=== PATIENT | male | born 1975 | race Caucasian/White ===

== ENCOUNTER 2020-03-03 03:35 | Inpatient (IN) ==
[2020-03-03] MEDS ORDERED: ONDANSETRON INJ 2 MG/ML 2 ML VIAL IV STA (04:01)
[2020-03-03] MEDS ORDERED: MoRPHine SULFATE 10 MG/ML CARP/VIAL IV STA (04:01)
[2020-03-03] MEDS ORDERED: SODIUM CHLORIDE 0.9% 1000ML 1,000 ML IV ONE (04:01)
[2020-03-03] MEDS ORDERED: KETOROLAC TROMETHAMINE 15 MG/ML VIAL IV STA (04:01)
[2020-03-03 04:10] LABS: Basophils # (auto) 0.02 K/uL (0-0.2); Basophils % (auto) 0.3 %; Eosinophils # (auto) 0.32 K/uL (0-0.5); Eosinophils % (auto) 4.9 %; Hematocrit (blood only) 45.8 % (42-52); Hemoglobin 16.2 g/dL (14.0-18.0); Immature Granulocytes # (auto) 0.01 K/uL (0.00-0.02); Immature Granulocytes % (auto) 0.2 %; Lymphocytes # (auto) 2.34 K/uL (1.2-3.4); Lymphocytes % (auto) 35.8 %; Mean Corpuscular Hgb Conc 35.4 g/dL (32-36); Mean Corpuscular Volume 87.7 fL (80-100); Mean Platelet Volume 8.6 fL (7.4-10.4); Monocytes # (auto) 0.58 K/uL (0.11-0.59); Monocytes % (auto) 8.9 %; Neutrophils # (auto) 3.27 K/uL (1.4-6.5); Neutrophils % (auto) 49.9 %; Platelet Count 231 K/uL (130-400); RDW Coefficient of Variation 11.9 % (11.5-14.5); RDW Standard Deviation 37.9 fL (36.4-46.3); Red Blood Count 5.22 M/uL (4.7-6.1); White Blood Count 6.54 K/uL (4.8-10.8)
[2020-03-03 04:28] LABS: Appearance Urine Clear (Clear); Bacteria Urine Automated Negative (Negative); Bilirubin Urine Negative (Negative); Blood Urine 3+ (Negative); Color Urine Yellow; Epithelial Cell Urine Auto 0-5 /lpf (0-5); Glucose Urine UA Negative (Negative); Ketones Urine Trace (Negative); Leukocyte Esterase Urine Negative (Negative); Nitrite Urine Negative (Negative); Protein Urine Trace (Negative); RBC Urine Automated >30 /hpf (0-4); Specific Gravity Urine 1.029 (1.000-1.030); Urobilinogen Urine Negative (Negative); pH Urine 5.5 (4.5-7.5)
[2020-03-03] MEDS ORDERED: HYDROmorphone INJ 1 MG/ML SYRINGE IV STA (04:43)
[2020-03-03 04:51] LABS: Albumin Globulin Ratio 0.9 (0.9-2); Albumin Level 3.6 gm/dl (3.4-5.0); Bilirubin,Total 0.4 mg/dl (0.2-1); Calcium 8.3 mg/dl (8.5-10.1); Creatinine Clr Calc Pharmacy 86.9 ml/min; Est GFR (African American) 74.3; Est GFR (Non-African American) 64.1; Globulin 3.9 gm/dl (2.5-4.0); Potassium 3.9 mmol/L (3.5-5.1); Total Protein 7.5 gm/dl (6.4-8.2)
--- NOTE | 2020-03-03 04:57 | Emergency Department Note ---
History of Present Illness General Chief complaint: Abdominal Pain Stated complaint: ABD PAIN Time Seen by Provider: 03/03/20 03:48 Source: patient Mode of arrival: ambulatory Limitations: no limitations History of Present Illness Maximum Pain Intensity: 8 This patient is a 44-year-old male who presents to the emergency department for evaluation of left lower quadrant abdominal pain. Pain started suddenly about 4 5 minutes prior to arrival. The patient states that his pain woke him up from sleep. He states that the pain is severe and rates his discomfort a 9/10. Nothing makes the pain better or worse. He has associated nausea but has not vomited. Pain has been constant but fluctuates in severity. He denies any changes in bowel movements or urinary symptoms. He denies any history of similar symptoms. Home Medications Home Medications Medication Instructions Recorded Confirmed Type levothyroxine 137 mcg PO DAILY 03/03/20 03/03/20 History Allergies Allergy/AdvReac Type Severity Reaction Status Date / Time No Known Allergies Allergy Unverified 03/03/20 03:54 Past Med/Surg History Medical History (Updated 03/03/20 @ 05:20 by Kristin Ibrahim PA-C) Blade's disease Reactive arthritis Surgical History No significant past surgical history Social History Smoking Status: Never smoker Feels Safe at Home: Yes Review of Systems A total of 10 systems reviewed and were otherwise negative Physical Exam Vital Signs Vital Signs - 24 hr 03/03/20 03:44 03/03/20 04:29 Temperature 36.6 C Temperature Source Oral Pulse Rate 59 L Pulse Rate [Right Finger] 62 Respiratory Rate 20 18 Respiratory Effort / Characteristics Non-Labored Spontaneous Respiratory Depth Normal Blood Pressure 146/86 H Blood Pressure [Right Arm] 159/95 H Blood Pressure Mean 106 Blood Pressure Mean [Right Arm] 116 Blood Pressure Position Sitting Pulse Oximetry 96 95 Oxygen Delivery Method Room Air Room Air Sepsis Recent Fever Within 48 Hours No Sepsis New/Unexplained Change in Mental Status N/A Sepsis Action Taken by Nursing No Action Required VITALS: Vitals are noted on the nurse's note and reviewed by myself. Vital signs stable. GENERAL: This is a 44-year-old male, uncomfortable appearing, lying supine in bed, well-developed well-nourished. SKIN: The skin was without rashes. EYES: Pupils equal round and reactive to light and accommodation. MOUTH: Mucous membranes moist. Tonsils are not enlarged. Pharynx without erythema or exudate. NECK: Supple without nuchal rigidity. No lymphadenopathy. HEART: Regular rate and rhythm without murmurs gallops or rubs. LUNGS: Clear to auscultation bilaterally without wheezes, rales or rhonchi. ABDOMEN: Positive bowel sounds x 4. Soft, no significant tenderness to palpation. No guarding or rebound tenderness. No CVA tenderness. NEURO: Patient was alert and oriented to person place and time. Course Administered Medications Discontinued Medications Hydromorphone HCl (Hydromorphone Inj 1 Mg/Ml Syringe) 1 mg IV NOW STA Stop: 03/03/20 04:44 Last Admin: 03/03/20 04:45 Dose: 1 mg Documented by: [id number] Sodium Chloride (Nss 1000ml) 1,000 mls @ 999 mls/hr IV .Q1H1M ONE Stop: 03/03/20 05:01 Last Infusion: 03/03/20 05:10 Dose: 0 mls/hr Documented by: [id number] Admin: 03/03/20 04:12 Dose: 999 mls/hr Documented by: [id number] Ketorolac Tromethamine (Ketorolac Tromethamine 15 Mg/Ml Vial) 15 mg IV NOW STA Stop: 03/03/20 04:02 Last Admin: 03/03/20 04:12 Dose: 15 mg Documented by: [id number] Morphine Sulfate (Morphine Sulfate 10 Mg/Ml Carp/Vial) 6 mg IV NOW STA Stop: 03/03/20 04:02 Last Admin: 03/03/20 04:11 Dose: 6 mg Documented by: [id number] Ondansetron HCl (Ondansetron Inj 2 Mg/Ml 2 Ml Vial) 4 mg IV NOW STA Stop: 03/03/20 04:02 Last Admin: 03/03/20 04:12 Dose: 4 mg Documented by: [id number] Medical Decision Making Differential Diagnosis Differential diagnosis includes renal calculus, pyelonephritis, musculoskeletal pain, ruptured AAA, aortic dissection, diverticulitis, perforated viscus, bowel obstruction, biliary pathology, pancreatitis, PE, pneumonia, pneumothorax, trauma, herpes zoster, malignancy, among others. Home Medications Current Medication List: was personally reviewed by me Laboratory Data Attestation: I reviewed the patient's lab results. Result diagrams: 03/03/20 03:55 03/03/20 03:55 Lab Results 03/03/20 03/03/20 03/03/20 Range/Units 03:55 03:55 04:15 WBC 6.54 (4.8-10.8) K/uL RBC 5.22 (4.7-6.1) M/uL Hgb 16.2 (14.0-18.0) g/dL Hct 45.8 (42-52) % MCV 87.7 (80-100) fL MCH 31.0 (25-34) pg MCHC 35.4 (32-36) g/dL RDW Std Deviation 37.9 (36.4-46.3) fL RDW Coeff of Samantha 11.9 (11.5-14.5) % Plt Count 231 (130-400) K/uL MPV 8.6 (7.4-10.4) fL Immature Gran % (Auto) 0.2 % Neut % (Auto) 49.9 % Lymph % (Auto) 35.8 % [place] % (Auto) 8.9 % Eos % (Auto) 4.9 % Baso % (Auto) 0.3 % Neut # (Auto) 3.27 (1.4-6.5) K/uL Lymph # (Auto) 2.34 (1.2-3.4) K/uL [place] # (Auto) 0.58 (0.11-0.59) K/uL Eos # (Auto) 0.32 (0-0.5) K/uL Baso # (Auto) 0.02 (0-0.2) K/uL Immature Gran # (Auto) 0.01 (0.00-0.02) K/uL Sodium 142 (136-145) mmol/L Potassium 3.9 (3.5-5.1) mmol/L Chloride 108 H (98-107) mmol/L Carbon Dioxide 29 (21-32) mmol/L Anion Gap 5.0 (3-11) BUN 15 (7-18) mg/dl Creatinine 1.33 (0.6-1.4) mg/dl Est Cr Clr Drug Dosing 86.9 ml/min Est GFR ( Amer) 74.3 Est GFR (Non-Af Amer) 64.1 BUN/Creatinine Ratio 11.0 (10-20) Glucose 154 H (70-99) mg/dl Calcium 8.3 L (8.5-10.1) mg/dl Total Bilirubin 0.4 (0.2-1) mg/dl AST 18 (15-37) U/L ALT 34 (12-78) U/L Alkaline Phosphatase 57 (45-117) U/L Total Protein 7.5 (6.4-8.2) gm/dl Albumin 3.6 (3.4-5.0) gm/dl Globulin 3.9 (2.5-4.0) gm/dl Albumin/Globulin Ratio 0.9 (0.9-2) Urine Color Yellow Urine Appearance Clear (Clear) Urine pH 5.5 (4.5-7.5) Ur Specific [place] 1.029 (1.000-1.030) Urine Protein Trace H (Negative) Urine Glucose (UA) Negative (Negative) Urine Ketones Trace H (Negative) Urine Blood 3+ H (Negative) Urine Nitrite Negative (Negative) Urine Bilirubin Negative (Negative) Urine Urobilinogen Negative (Negative) Ur Leukocyte Esterase Negative (Negative) Urine WBC (Auto) 1-5 (0-5) /hpf Urine RBC (Auto) >30 H (0-4) /hpf U Hyaline Cast (Auto) 1-5 (0-5) /lpf U Epithel Cells (Auto) 0-5 (0-5) /lpf Urine Bacteria (Auto) Negative (Negative) Imaging Data Attestation: I personally reviewed and interpreted this imaging study as follow s: Radiologist's Impression: CT ABDOMEN & PELVIS Without Contrast: 4.9 mm proximal left ureteral stone at the UPJ with mild left hydronephrosis. Incidental nonobstructive nephrolithiasis involving the superior pole the right kidney. No right ureteral stones. No bladder calcifications. The unenhanced solid abdominal organs are otherwise unremarkable. No acute bowel abnormality or obstruction. No free intraperitoneal fluid or pneumoperitoneum. Radiologist: Lobito Mcdaniel MD Blood Pressure Blood Pressure Findings: Elevated blood pressure Blood Pressure Disposition: further management by hospitalist ANNA Sousa The patient is a 44-year-old male who presents today complaining of left lower quadrant abdominal pain which started suddenly 45 minutes prior to arrival. Labs revealed no leukocytosis, anemia or concerning electrolyte abnormality. Creatinine within normal limits. Urinalysis was not suggestive of infection. CT of the abdomen/pelvis shows a large proximal left ureteral stone. Patient given multiple doses of pain medication and had continued pain despite this. Given patient's intractable pain and large stone with hydronephrosis, I do feel he would benefit from inpatient care. The case was discussed with the [facility] service, who agreed to evaluate patient. Impression & Plan Calculus of proximal left ureter, Hydronephrosis Discharge Plan Visit Data Chief Complaint: Abdominal Pain Stated Complaint: ABD PAIN ED Provider: Tomasz Lucero ED Midlevel Provider: Kristin Ibrahim Discharge Problem: Calculus of proximal left ureter, Hydronephrosis Forms Stand Alone Forms: [employer] Prescriptions Prescriptions: No Action levothyroxine 137 mcg tablet 137 mcg PO DAILY RF: 0 Discharge Problem: Hydronephrosis Qualifiers: Hydronephrosis type: with ureteral calculous obstruction Qualified Code(s): N13.2 - Hydronephrosis with renal and ureteral calculous obstruction
--- NOTE | 2020-03-03 06:54 | History and Physical Report ---
DATE OF ADMISSION: 03/03/2020 CHIEF COMPLAINT: Left-sided abdominal pain. HISTORY OF PRESENT ILLNESS: This is a 44-year-old male with past medical history significant for hypothyroidism, hyperlipidemia, polyarthropathy, who presents with left-sided abdominal pain and found to have left kidney stone. The patient has no history of kidney stones in the past. Presented with severe left sided abdominal pain, 9/10 in severity. No burning micturition, no hematuria. No fever, no chills. Required significant pain medication in the ER. Currently pain is under control. Denies any headache, no blurred vision, no earache, no runny nose, no sore throat, no cough, no chest pain, no shortness of breath, no nausea. Normal bowel movements. Currently, resting comfortably and hemodynamically stable. ALLERGIES: No known drug allergies. PAST MEDICAL HISTORY: As mentioned above. PAST SURGICAL HISTORY: Carpal tunnel surgery right wrist, tonsillectomy, adenoidectomy, right tympanostomy tubes. MEDICATIONS: Levothyroxine 137 mcg p.o. daily. FAMILY HISTORY: Significant for mother had throat cancer, heart disorder, hypertension; father had heart disorder, of [place] at age of 55 years; sister has hypertension; maternal grandfather in his 50s from heart disorder; maternal grandmother had heart disorder, in her 50s; mother in her 50s from heart complications. SOCIAL HISTORY: . No smoking, no alcohol, no drug use. REVIEW OF SYSTEMS: As per HPI. Rest of the review of systems negative. PHYSICAL EXAMINATION: GENERAL: The patient is of moderate build, not in acute distress. VITAL SIGNS: Temperature 36.6, pulse 62, respiratory rate 18, blood pressure 159/95, oxygen 95% on room air. HEENT: No pallor, no icterus. Atraumatic. Pupils equal, round, reactive to light. NECK: No neck masses seen, supple. CARDIOVASCULAR: S1, S2 heard, regular rate and rhythm, no murmur, no gallop. RESPIRATORY SYSTEM: Normal AP diameter. No accessory muscle use. No wheezing, no crackles. ABDOMEN: Soft, bowel sounds present, nontender. No distention, no CVA tenderness. CENTRAL NERVOUS SYSTEM: Cranial nerves II-XII grossly intact. Nonfocal. EXTREMITIES: No edema, no erythema. LABORATORY DATA: WBC 6.5, hemoglobin 16.2, hematocrit 45.8, platelets 231. Sodium 142, potassium 3.9, chloride 108, bicarbonate 29, BUN 15, creatinine 1.3, serum glucose 154, calcium 8.3, total bilirubin 0.4, AST 18, ALT 34, alkaline phosphatase 57. Urinalysis, +3 blood. IMAGING DATA: CT abdomen and pelvis preliminary report shows about 5 mm proximal left ureteral stone at the UPJ junction with mild left hydronephrosis. ASSESSMENT AND PLAN: This is a 44-year-old male who presents with left renal colic. 1. Left renal colic, about 5 mm left ureteropelvic junction kidney stone on the CAT scan preliminary report. The patient is not septic. UA is negative for infection. Required significant pain meds in ER. Will keep him on V fluids, IV normal saline at 125 mL per hour, IV Dilaudid p.r.n., IV Toradol p.r.n. N.p.o. except meds until seen by urology. Consult urology in the a.m. for further recommendations. 2. Hypothyroidism. Continue Synthroid. 3. Deep venous thrombosis prophylaxis, sequential compression devices. DISPOSITION: Admit to medical floor. Expect to discharge home and follow with family doctor. GEOVANI
[2020-03-03] MEDS ORDERED: POLYETHYLENE (MIRALAX) 17 GM PACK PO PRN (08:15)
[2020-03-03] MEDS ORDERED: KETOROLAC TROMETHAMINE 15 MG/ML VIAL IV PRN (08:15)
[2020-03-03] MEDS ORDERED: SODIUM CHLORIDE 0.9% 1000ML 1,000 ML IV SCH ×2 (08:15→16:45)
[2020-03-03] MEDS ORDERED: ACETAMINOPHEN 325 MG TAB PO PRN (08:15)
[2020-03-03] MEDS ORDERED: HYDROmorphone INJ 0.5 MG/0.5 ML SYR IV PRN ×2 (08:15→09:51)
[2020-03-03] MEDS ORDERED: ONDANSETRON INJ 2 MG/ML 2 ML VIAL IV PRN ×2 (08:15→11:57)
--- NOTE | 2020-03-03 08:18 | CT Scan Report ---
CT OF THE ABDOMEN AND PELVIS WITHOUT CONTRAST CLINICAL HISTORY: Left lower quadrant abdominal pain. COMPARISON STUDY: No previous studies for comparison. TECHNIQUE: Axial images of the abdomen and pelvis were obtained without IV contrast. Images were revi ewed in the axial, sagittal, and coronal planes. Automated exposure control was utilized for the jane dy. A dose lowering technique was utilized adhering to the principles of ALARA. FINDINGS: A 6 mm left ureteropelvic junction calculus results in mild hydronephrosis. There is a 6 mm calculus within the upper pole of the right kidney. There is mild left perinephric infiltration. Katherin luation of the remainder of the abdomen and pelvis is suboptimal on this unenhanced examination. The liver, spleen, adrenal glands and pancreas are unremarkable. There is no evidence for a bowel obstruc tion. The appendix is normal. No ascites is present. There is no lymphadenopathy. No suspicious osseo us lesions are noted. IMPRESSION: 1. 6 mm left ureteropelvic junction calculus which results in mild hydronephrosis. 2. 6 mm calculus within the upper pole of the right kidney. ACT 112: Negative or not required by law. Electronically signed by: Bart Neal M.D. 03/03/2020 8:16 AM
--- NOTE | 2020-03-03 09:48 | Hospitalist Progress Note ---
Date of Service March 03, 2020 Assessment & Plan (1) Calculus of proximal left ureter: (2) Hydronephrosis: -admission CT abdomen/Pelvis: A 6 mm left ureteropelvic junction calculus results in mild hydronephrosis. There is a 6 mm calculus within the upper pole of the right kidney. There is mild left perinephric infiltration. -no fevers -patient started on IV fluids -will start patient on Flomax in addition -prn pain medications with bowel regimen -Urology consult requested. currently patient is NPO if there is any potential direct urology procedure for kidney stone. if procedure not indicated today then patient may be given diet but nurse reports the urology service has plans for jocelyn kenny to go to [place] today, hospitalist will order preoperative ceftriaxone 1 gram Rheumatoid Arthritis -patient reports history of rheumatoid arthritis for which he takes ibupofren daily. patient on prn acetaminophen and prn narcotics currently for the kidney stone (3) Hypothyroidism: -continue home dose Levothyroxine Admission and Anticipated Discharge Date Admission Date: March 03, 2020 Subjective Patient seen and examined. He is in no distress. No flank pain. he reports when he felt pain that is was anterior left abdomen. He has been able to make urine. denies fevers. no headache. no dizziness. no chest pain. no shortness of breath. breathing on room air Review of Systems Review of Systems: All systems reviewed & are unremarkable except as noted in Subjective Physical Exam Constitutional: WD/WN, vitals as above Eyes: PERRL, conjunctivae normal, anicteric sclerae EOM intact bilaterally ENMT: external ear and nose normal, oropharynx normal Neck: trachea midline, no thyromegaly normal visual inspection Respiratory: normal respiratory effort, lungs clear to auscultation Cardiovascular: RRR, no murmur, no edema Gastrointestinal (Abdomen): normal bowel sounds, soft, nontender, no hepatosplenomegaly Musculoskeletal: Head/Neck/Chest: normocephalic and head atraumatic Neurologic: PERRL, EOMI, accommodation nl, no face palsy, no dysarthria CN's II-XI intact bilaterally Psychiatric: A+Ox3, euthymic affect Results & Data Results & Data ([facility]) Vital Signs (Past 12 Hours) Vital Signs Temp Pulse Pulse Resp BP BP Pulse Ox 03/03/20 08:05 36.7 C 61 16 143/81 H 99 03/03/20 07:59 64 18 147/70 H 94 03/03/20 06:00 76 18 147/85 H 95 03/03/20 04:29 62 18 159/95 H 95 03/03/20 03:44 36.6 C 59 L 20 146/86 H 96 (1) Hydronephrosis Hydronephrosis type: with ureteral calculous obstruction Qualified Code(s): N13.2 - Hydronephrosis with renal and ureteral calculous obstruction
[2020-03-03] MEDS: LEVOTHYROXINE SODIUM 137 MCG TABLET PO SCH (09:52)
--- NOTE | 2020-03-03 10:00 | Urology Consultation ---
Date of Consultation March 03, 2020 Assessment & Plan (1) Calculus of proximal left ureter: 6 mm left UPJ calculus with obstruction Plan for cystoscopy left ureteral stent insertion today Cover with ciprofloxacin Likely outpatient surgery later in the week to definitively treat the stone History of Present Illness Attending Physician: Dilip Chung MD History of Present Illness 44-year-old gentleman admitted overnight with severe left renal colic and associated nausea No prior history of kidney stones Good health overallhypothyroid only No fevers, no chills, no hematuria, no rigors Continues to be symptomatic and desires treatment CT reveals a 6 mm left UPJ stone as well as a 6 mm right lower pole stonenonobstructing No family history of kidney stones Allergies Allergy/AdvReac Type Severity Reaction Status Date / Time No Known Allergies Allergy Unverified 03/03/20 03:54 Home Medications Home Medications Medication Instructions Recorded Confirmed Type levothyroxine 137 mcg PO DAILY 03/03/20 03/03/20 History Patient History Medical History Blade's disease Reactive arthritis Surgical History No significant past surgical history Social History Smoking Status: Never smoker Second Hand Exposure: No; Do You Dip or Chew Tobacco: No; Tobacco Cessation Education Requested by Patient: No Hx Alcohol Use: Yes Hx Substance Use: No Preferred Language: Georgian Communication Ability: Effective Licensed Weigher Required: No Beliefs That Will Affect Care: None Current Living Situation: Spouse Other Information That Helps Us Care for You: No Feels Safe at Home: Yes Safety Concerns: Feels Safe At This Time Review of Systems Constitutional: no fever, no chills and no fatigue Eyes: no worsening vision Ear, Nose, Mouth, Throat: no facial pain and no pain with swallowing Respiratory: no cough and no dyspnea Cardiovascular: no chest pain and no palpitations Gastrointestinal: + abdominal pain and + nausea; no vomiting Genitourinary: no dysuria and no hematuria Musculoskeletal: no back pain Integumentary: no rash and no urticaria Neurologic: no gait abnormality and no unsteadiness Psychiatric: no behavioral changes and no depression Endocrine: no fatigue Physical Exam Physical Exam: Uncomfortable appearing Tender in the left flank Constitutional: well developed and well nourished Neck: neck nontender Respiratory: normal respiratory effort; no respiratory distress and does not use accessory muscles Cardiovascular: Rate/Rhythm: regular rate Vessels: radial pulses present Extremities: no edema Gastrointestinal (Abdomen): Inspection/Auscultation: abdomen normal to inspection Percussion/Palpation: abdomen soft; abdomen nontender and no guarding Musculoskeletal: Head/Neck/Chest: normocephalic and head atraumatic Extremities: extremities normal to inspection Skin: no rashes and no lesions Trauma: no evidence of skin trauma Neurologic: awake; not obtunded Speech / Cognition: normal speech Motor/Sensory: no tremor Psychiatric: Orientation: alert and oriented x 3 Genitourinary: no CVA tenderness Lymphatic: no lymphadenopathy Results & Data ([facility]) Vital Signs (Past 12 Hours) Vital Signs Temp Pulse Pulse Resp BP BP Pulse Ox 03/03/20 08:05 36.7 C 61 16 143/81 H 99 03/03/20 07:59 64 18 147/70 H 94 03/03/20 06:00 76 18 147/85 H 95 03/03/20 04:29 62 18 159/95 H 95 03/03/20 03:44 36.6 C 59 L 20 146/86 H 96 PG Care Time/CCT Total # of Minutes Spent Total Time Spent with Patient: Total time spent is greater than 50% in coordination of care (as documented) at patient's floor/unit and/or counseling patient: Coding Level of Care Code 34258 Inpt Consult Level 4 Diagnoses Calculus of proximal left ureter N20.1
[2020-03-03] MEDS ORDERED: TAMSULOSIN HCL 0.4 MG CAP PO ONE (10:30)
[2020-03-03] MEDS ORDERED: cefTRIAXone SODIUM 2,000 MG in DEXTROSE 5% 50 ML IV ONE (10:30)
[2020-03-03] MEDS: SENNA 8.6 MG TAB PO SCH (10:33)
[2020-03-03] MEDS ORDERED: LIDOCAINE HCL 2% 2 ML VIAL/AMP(20MG/ML) INFIL ONE (11:45)
[2020-03-03] MEDS ORDERED: PROPOFOL IV EMULSION 10 MG/ML 20 ML VIAL IV ONE ×2 (11:45→12:31)
[2020-03-03] MEDS ORDERED: fentaNYL citrate 100 MCG/2 ML VIAL ONE (11:46)
[2020-03-03] MEDS ORDERED: MIDAZOLAM HCL 1 MG/ML 2ML VIAL ONE (11:46)
[2020-03-03] MEDS ORDERED: fentaNYL citrate 100 MCG/2 ML VIAL IV PRN (11:57)
[2020-03-03] MEDS ORDERED: ATROPINE SULFATE 0.1 MG/ML 10ML SYR IV PRN (11:57)
[2020-03-03] MEDS ORDERED: ePHEDrine sulfate 50 MG/ML AMP IV PRN (11:57)
[2020-03-03] MEDS ORDERED: HYDROmorphone INJ 2 MG/ML SYR/VIAL IV PRN (11:57)
--- NOTE | 2020-03-03 11:59 | Anesthesiology Consultation ---
Date of Service March 03, 2020 Assessment & Plan ASA ASA2 Proposed Anesthesia Anesthesia Type: MAC Risk / Benefits Reviewed With: PT / POA / Parent / Guardian, Accepts Plan and Informed Consent Obtained History Surgery Operation Date: 03/03/20 12:15 Proposed Procedures p Cystoscopy Retrograde - Mikael Clay MD Height/Weight Height: 5 ft 10 in Weight: 109.4 kg Allergies Allergy/AdvReac Type Severity Reaction Status Date / Time No Known Allergies Allergy Unverified 03/03/20 03:54 Medications Home Medications Medication Instructions Recorded Confirmed Last Taken levothyroxine 137 mcg PO DAILY 03/03/20 03/03/20 03/02/20 Active Medications Generic Name Dose Route Start Last Admin Trade Name Freq PRN Reason Stop Dose Admin Sodium Chloride 1,000 mls @ 125 mls/hr 03/03/20 08:15 03/03/20 11:15 Nss 1000ml IV 04/02/20 08:14 125 mls/hr .Q8H LIBIA Infusion Levothyroxine Sodium 137 mcg 03/03/20 09:00 03/03/20 09:52 Levothyroxine Sodium 137 Mcg Tablet PO 04/02/20 08:59 Not Given DAILYBB LIBIA Sennosides 8.6 mg 03/03/20 10:30 03/03/20 10:33 Senna 8.6 Mg Tab PO 04/02/20 10:29 Not Given QAM LIBIA NPO Date Last Intake of Fluids: 03/03/20 Time Last Intake of Fluids: 09:00 Date Last Intake of Solids: 03/03/20 Time Last Intake of Solids: 00:00 Past Medical History Medical History Blade's disease Reactive arthritis Exercise / Class Metabolic Activity 1 > 8 Run/Swim/Ski/Tennis Past Surgical History Surgical History No significant past surgical history Past Anesthesia History No Hx of Anesthesia Complications and No Family Hx of Anesthesia Complications History of PONV No Hx of PONV and No Hx of Motion Sickness Social History Smoking Status: Never smoker Do You Dip or Chew Tobacco: No Hx Alcohol Use: Yes alcohol intake frequency: other Alcohol Intake Frequency Comment: 1 drink a year, last on Hx Substance Use: No substance use type: does not use Review of Systems denies fever/cough/ colds/ chest pain/ SOB/ AMA Constitutional: no fever and no chills Respiratory: no cough and no dyspnea denies AMA Cardiovascular: no chest pain and no dyspnea on exertion Physical Exam Vital Signs Last Vital Signs Temp 36.7 C 03/03/20 08:05 Pulse 61 03/03/20 08:05 Resp 16 03/03/20 08:05 BP 143/81 H 03/03/20 08:05 Pulse Ox 99 03/03/20 08:05 ENMT Mouth: no TMJ abnormality and no dentition abnormality Thyromental Distance: > or= 3.5 Finger Breadths Mallampati Class: II Neck neck extension not limited Respiratory normal respiratory effort; no respiratory distress Auscultation: lungs clear to auscultation bilaterally Cardiovascular Rate/Rhythm: regular rate and regular rhythm Neurologic moves all extremities Psychiatric Orientation: alert and oriented x 3 Testing Laboratory Results 03/03/20 03:55 03/03/20 03:55 Urine Color Yellow 03/03/20 04:15 Urine Appearance Clear (Clear) 03/03/20 04:15 Urine pH 5.5 (4.5-7.5) 03/03/20 04:15 Ur Specific [place] 1.029 (1.000-1.030) 03/03/20 04:15 Urine Protein Trace (Negative) H 03/03/20 04:15 Urine Glucose (UA) Negative (Negative) 03/03/20 04:15 Urine Ketones Trace (Negative) H 03/03/20 04:15 Urine Nitrite Negative (Negative) 03/03/20 04:15 Ur Leukocyte Esterase Negative (Negative) 03/03/20 04:15 Urine WBC (Auto) 1-5 /hpf (0-5) 03/03/20 04:15 Urine RBC (Auto) >30 /hpf (0-4) H 03/03/20 04:15 U Hyaline Cast (Auto) 1-5 /lpf (0-5) 03/03/20 04:15 U Epithel Cells (Auto) 0-5 /lpf (0-5) 03/03/20 04:15 Urine Bacteria (Auto) Negative (Negative) 03/03/20 04:15
[2020-03-03] MEDS ORDERED: CIPROFLOXACIN / D5W 400 MG/200 ML BAG IV SCH (12:00)
--- NOTE | 2020-03-03 12:35 | Operative Report ---
PG Post Operative Report Pre & Post Diagnosis Operation Date: 03/03/20 12:15 Pre-Op Diagnosis: Calculus of proximal left ureter Post-Op Diagnosis: Calculus of proximal left ureter I identified the patient and participated in the time-out.: Yes Procedure Operation Date: 03/03/20 12:15 Actual Procedures p Cystoscopy and Left Ureteral Stent(Left) - Mikael Clay MD Surgeon Americo Clay MD Engineering Program Manager none Estimated Blood Loss 0 Findings Consistent with Post-Op Diagnosis Specimens none Description of Procedure The patient was identified in the preoperative holding area, appropriate informed consents were reviewed and completed and the patient was transferred to the operative suite. Upon arrival, appropriate antibiotics and anesthesia were administered and the patient was placed in dorsal lithotomy position and prepped and draped in sterile fashion. To begin the case I passed a 22 Estonian cystoscope with 30 degree lens. Inspection of the urethra revealed no strictures. He has a moderately enlarged prostate for age, bladder mucosa was without abnormality. After full inspection I intubated the left ureteral orifice with a 5 Estonian open-ended catheter and a sensor wire. Wire was advanced to the kidney without difficulty and a 6 Estonian by 26 centimeters stent was inserted over the wire. There was a good curl in the kidney as well as the bladder. The case was concluded after I emptied the bladder. He was reversed of anesthesia and taken to the recovery room in stable condition. There were no complications. I attest to the content of the Intraoperative Record and any orders documented therein. Any exceptions are noted below.
--- NOTE | 2020-03-03 12:53 | Anesthesiology Progress Note ---
Date of Service March 03, 2020 Anesthesia Post Procedure Vital Signs Vital Signs: Temp Pulse Pulse Pulse Resp BP BP 03/03/20 12:50 36.5 C 65 16 120/64 03/03/20 12:40 36.7 C 63 10 L 132/59 L 03/03/20 08:05 36.7 C 61 16 03/03/20 07:59 64 18 147/70 H 03/03/20 06:00 76 18 03/03/20 04:29 62 18 03/03/20 03:44 36.6 C 59 L 20 146/86 H BP Pulse Ox 03/03/20 12:50 95 03/03/20 12:40 98 03/03/20 08:05 143/81 H 99 03/03/20 07:59 94 03/03/20 06:00 147/85 H 95 03/03/20 04:29 159/95 H 95 03/03/20 03:44 96 Pain Intensity Left Flank: Pain Intensity: 10 Transfer of Care Handoff Completed per policy Notes Mental Status: alert / awake / arousable and participated in evaluation Patient Amnestic to Procedure: Yes Nausea / Vomiting: adequately controlled Pain: adequately controlled Airway Patency, RR, SpO2: stable & adequate BP & HR: stable & adequate Hydration State: stable & adequate Anesthetic Complications: no major complications apparent and Pt Satisfied with anesthetic care
--- NOTE | 2020-03-03 13:00 | Fluoroscopy Report ---
FL KUB CLINICAL HISTORY: LT SIDE CYSTO WITH STENT COMPARISON STUDY: CT of the abdomen and pelvis March 03, 2020. FLUOROSCOPY TIME: 4.7 seconds. FLUOROSCOPIC IMAGES: 1 FINDINGS: Fluoroscopy was provided during left retrograde exam which ureteral stent insertion. Proxim al aspect of the stent projects over the left renal collecting system. IMPRESSION: Fluoroscopy provided during left retrograde exam with ureteral stent insertion. ACT 112: Negative or not required by law. Electronically signed by: Bart Neal M.D. 03/03/2020 12:58 PM
[2020-03-03] MEDS ORDERED: METOCLOPRAMIDE HCL INJ 5 MG/ML 2 ML VIAL IV PRN (14:07)
[2020-03-03] MEDS ORDERED: HYDROmorphone INJ 0.5 MG/0.5 ML SYR IV STA (14:39)
[2020-03-03] MEDS: OXYCODONE HCL IR 5 MG TAB (IMMEDIATE RELEASE) PO PRN ×2 (14:41→21:21)
[2020-03-03] MEDS ORDERED: PHENAZOPYRIDINE HCL 200 MG TAB PO STA (16:52)
[2020-03-03] MEDS ORDERED: TAMSULOSIN HCL 0.4 MG CAP PO SCH (21:00)
[2020-03-03] MEDS ORDERED: PHENAZOPYRIDINE HCL 100 MG TAB PO PRN (21:00)
[2020-03-03] MEDS: CIPROFLOXACIN 500 MG TAB PO SCH (21:17)
[2020-03-04] MEDS: LEVOTHYROXINE SODIUM 137 MCG TABLET PO SCH (05:28)
[2020-03-04 06:06] LABS: Basophils # (auto) 0.02 K/uL (0-0.2); Basophils % (auto) 0.2 %; Eosinophils # (auto) 0.26 K/uL (0-0.5); Hematocrit (blood only) 43.5 % (42-52); Immature Granulocytes # (auto) 0.01 K/uL (0.00-0.02); Immature Granulocytes % (auto) 0.1 %; Lymphocytes # (auto) 2.03 K/uL (1.2-3.4); Lymphocytes % (auto) 23.3 %; Mean Corpuscular Hemoglobin 30.4 pg (25-34); Mean Corpuscular Hgb Conc 34.5 g/dL (32-36); Mean Corpuscular Volume 88.2 fL (80-100); Mean Platelet Volume 8.7 fL (7.4-10.4); Monocytes # (auto) 0.63 K/uL (0.11-0.59); Monocytes % (auto) 7.2 %; Neutrophils # (auto) 5.78 K/uL (1.4-6.5); Neutrophils % (auto) 66.2 %; Platelet Count 205 K/uL (130-400); RDW Coefficient of Variation 11.9 % (11.5-14.5); RDW Standard Deviation 38.2 fL (36.4-46.3); Red Blood Count 4.93 M/uL (4.7-6.1); White Blood Count 8.73 K/uL (4.8-10.8)
[2020-03-04 06:38] LABS: Potassium 3.8 mmol/L (3.5-5.1)
[2020-03-04 06:39] LABS: BUN Creatinine Ratio 13.4 (10-20); Calcium 8.6 mg/dl (8.5-10.1); Creatinine Clr Calc Pharmacy 97.1 ml/min; Est GFR (Non-African American) 73.3; Magnesium 2.1 mg/dl (1.8-2.4)
[2020-03-04] MEDS: CIPROFLOXACIN 500 MG TAB PO SCH (08:37)
[2020-03-04] MEDS: SENNA 8.6 MG TAB PO SCH (08:37)
--- NOTE | 2020-03-04 08:43 | Hospitalist Progress Note ---
Date of Service March 04, 2020 Assessment & Plan (1) Calculus of proximal left ureter: (2) Hydronephrosis: Calculus of proximal left ureter (6 mm left UPJ calculus with obstruction) with mild Hydronephrosis s/p Cystoscopy and Left Ureteral Stent on 03/03/[address] [facility] Dr. Clay -admission CT abdomen/Pelvis: A 6 mm left ureteropelvic junction calculus results in mild hydronephrosis. There is a 6 mm calculus within the upper pole of the right kidney. There is mild left perinephric infiltration. -no fevers -patient started on IV fluids -s/p Cystoscopy and Left Ureteral Stent on 03[facility]03[facility] Clay; pre and post-operative antibiotics included ceftriaxone and ciprofloxacin -patient was also given tamsulosin and pain medications in the hospital -by 03/04/2020 AM patient feeling the left sided abdominal pain is still exacerbated by urination however the pain is generally controlled. He and his were given options of discharge with outpatient medications and followup versus further inpatient urology evaluation - patient and prefers discharge today. -Patient is to follow up with [facility] on [address] [place] [address], [place] [address] for outpatient surgery later in the week to definitively treat the stone Patient should follow up with primary care doctor (an appointment made to see Dr. Martini at [facility] on Wed03/06/2020 at 12:40 PM) discharge medications sent electronically to [facility] [address], [place] [address] Patient will have discharge medications of acetaminophen 325 mg every 6 hours as needed for pain or fever, oxycodone 5 mg every 6 hours as needed for moderate to severe pain (24 tablets prescribed), senna daily for bowel movements when on narcotic pain medications, Pyridium (phenazopyridine) three times aa day as needed for bladder pain (patient counseled that this medication can turn urine into orange color), tamsulosin daily to help with dilating ureter and to help with urine flow, ciprofloxacin 500 mg every twice a day for 7 days while awaiting outpatient urology surgery (3) Hypothyroidism: -continue home dose Levothyroxine Rheumatoid Arthritis -patient reports history of rheumatoid arthritis for which he takes ibupofren daily. patient on prn acetaminophen and prn narcotics currently for the kidney stone Admission and Anticipated Discharge Date Admission Date: March 03, 2020 Subjective by 03/04/2020 AM patient feeling the left sided abdominal pain is still exacerbat ed by urination however the pain is generally controlled. He and his were given options of discharge with outpatient medications and followup versus further inpatient urology evaluation - patient and prefers discharge today. no chest pain. no shortness of breath. no palpitations. breathing on room air. no vomiting. no dizziness. no fevers Review of Systems Review of Systems: All systems reviewed & are unremarkable except as noted in Subjective Physical Exam Constitutional: WD/WN, vitals as above Eyes: PERRL, conjunctivae normal, anicteric sclerae EOM intact bilaterally ENMT: external ear and nose normal, oropharynx normal Neck: trachea midline, no thyromegaly normal visual inspection Respiratory: normal respiratory effort, lungs clear to auscultation Cardiovascular: RRR, no murmur, no edema Gastrointestinal (Abdomen): normal bowel sounds, soft, nontender, no hepatosplenomegaly Musculoskeletal: Head/Neck/Chest: normocephalic and head atraumatic Neurologic: PERRL, EOMI, accommodation nl, no face palsy, no dysarthria CN's II-XI intact bilaterally Psychiatric: A+Ox3, euthymic affect Results & Data Results & Data ([facility]) Vital Signs (Past 12 Hours) Vital Signs Temp Pulse Pulse Resp BP Pulse Ox 03/04/20 07:18 36.5 C 63 18 157/91 H 95 03/04/20 03:57 36.6 C 68 18 124/73 95 03/03/20 23:44 37.2 C 67 20 116/67 93 03/03/20 21:51 36.8 C 71 18 132/66 92 (1) Hydronephrosis Hydronephrosis type: with ureteral calculous obstruction Qualified Code(s): N13.2 - Hydronephrosis with renal and ureteral calculous obstruction
--- NOTE | 2020-03-04 08:49 | Discharge Summary ---
Date of Service March 04, 2020 Admission HPI Per Admitting Provider This is a 44-year-old male with past medical history significant for hypothyroidism, hyperlipidemia, polyarthropathy, who presents with left-sided abdominal pain and found to have left kidney stone. The patient has no history of kidney stones in the past. Presented with severe left sided abdominal pain, 9/10 in severity. No burning micturition, no hematuria. No fever, no chills. Required significant pain medication in the ER. Currently pain is under control. Denies any headache, no blurred vision, no earache, no runny nose, no sore throat, no cough, no chest pain, no shortness of breath, no nausea. Normal bowel movements. Currently, resting comfortably and hemodynamically stable. Principal Diagnosis Calculus of proximal left ureter (6 mm left UPJ calculus with obstruction) with mild Hydronephrosis s/p Cystoscopy and Left Ureteral Stent on 03/03/2020 by [facility] Dr. Clay Hypothyroidism Discharge Exam Constitutional WD/WN, vitals as above Eyes PERRL, conjunctivae normal, anicteric sclerae EOM intact bilaterally ENMT external ear and nose normal, oropharynx normal Neck trachea midline, no thyromegaly normal visual inspection Respiratory normal respiratory effort, lungs clear to auscultation Cardiovascular RRR, no murmur, no edema Gastrointestinal (Abdomen) normal bowel sounds, soft, nontender, no hepatosplenomegaly Musculoskeletal Head/Neck/Chest: normocephalic and head atraumatic Neurologic PERRL, EOMI, accommodation nl, no face palsy, no dysarthria CN's II-XI intact bilaterally Psychiatric A+Ox3, euthymic affect Discharge Data Allergies Allergy/AdvReac Type Severity Reaction Status Date / Time No Known Allergies Allergy Unverified 03/03/20 03:54 Consultations 03/03/20 05:13 ED Decision to Admit Stat 03/03/20 08:15 Consult Urology Routine Procedures Performed Operation Date: 03/03/20 12:15 Actual Procedures p Cystoscopy and Left Ureteral Stent(Left) - Mikael Clay MD Ordered Studies 03/03/20 FL KUB Routine 03/03/20 04:01 CT abd pelvis wo con Urgent 03/03/20 07:00 FL fluoroscopy <1hr Routine Hospital Course (1) Calculus of proximal left ureter: (2) Hydronephrosis: Calculus of proximal left ureter (6 mm left UPJ calculus with obstruction) with mild Hydronephrosis s/p Cystoscopy and Left Ureteral Stent on 03/03/2020 by [facility] Dr. Clay -admission CT abdomen/Pelvis: A 6 mm left ureteropelvic junction calculus results in mild hydronephrosis. There is a 6 mm calculus within the upper pole of the right kidney. There is mild left perinephric infiltration. -no fevers -patient started on IV fluids -s/p Cystoscopy and Left Ureteral Stent on 03[facility]03/[facility]; pre and post-operative antibiotics included ceftriaxone and ciprofloxacin -patient was also given tamsulosin and pain medications in the hospital -by 03/04/2020 AM patient feeling the left sided abdominal pain is still exacerbated by urination however the pain is generally controlled. He and his were given options of discharge with outpatient medications and followup versus further inpatient urology evaluation - patient and prefers discharge today. -Patient is to follow up with [facility] on [address] [place] [address] Dr, [place] [address] for outpatient surgery later in the week to definitively treat the stone Patient should follow up with primary care doctor (an appointment made to see Dr. Martini at [facility] on Wed03/06/2020 at 12:40 PM) discharge medications sent electronically to [facility] [address], [place] [address] Patient will have discharge medications of acetaminophen 325 mg every 6 hours as needed for pain or fever, oxycodone 5 mg every 6 hours as needed for moderate to severe pain (24 tablets prescribed), senna daily for bowel movements when on narcotic pain medications, Pyridium (phenazopyridine) three times aa day as needed for bladder pain (patient counseled that this medication can turn urine into orange color), tamsulosin daily to help with dilating ureter and to help with urine flow, ciprofloxacin 500 mg every twice a day for 7 days while awaiting outpatient urology surgery (3) Hypothyroidism: -continue home dose Levothyroxine Rheumatoid Arthritis -patient reports history of rheumatoid arthritis for which he takes ibupofren daily. patient on prn acetaminophen and prn narcotics currently for the kidney stone Total Time Total Time Spent Total Time Spent (In Minutes): 40 minutes Total Time Includes: Examination of the Patient, Discharge Planning, Medication Reconciliation and Communication With Other Providers Discharge Plan Discharge Items Patient Disposition: Home - Self-Care Reason For Visit: ABD PAIN Discharge Diagnosis: Calculus of proximal left ureter (6 mm left UPJ calculus with obstruction) with mild Hydronephrosis s/p Cystoscopy and Left Ureteral Stent on 03/03/2020 by [facility] Dr. Clay Hypothyroidism Condition on Discharge: Good Activity: Per Instructions section Non-emergency contact: Primary Care Provider and Urologist Call non-emergency contact if: you have any medication questions Follow-up/Referrals: Bjorn Billingsley MD [Primary Care Provider] - Diet: Regular Addtl Attending Provider Instructions: Patient is to follow up with [facility] on [address] [facility], [place] [address] for outpatient surgery later in the week to definitively treat the stone Patient should follow up with primary care doctor (an appointment made to see Dr. Martini at [facility] on Wed03/06/2020 at 12:40 PM) discharge medications sent electronically to [facility] [address], [place] [address] Patient will have discharge medications of acetaminophen 325 mg every 6 hours as needed for pain or fever, oxycodone 5 mg every 6 hours as needed for moderate to severe pain (24 tablets prescribed), senna daily for bowel movements when on narcotic pain medications, Pyridium (phenazopyridine) three times aa day as needed for bladder pain (patient counseled that this medication can turn urine into orange color), tamsulosin daily to help with dilating ureter and to help with urine flow, ciprofloxacin 500 mg every twice a day for 7 days while awaiting outpatient urology surgery Pending Studies at Discharge: No Stand-Alone Forms: My [employer], Smoking Cessation Medications and DC Order Prescriptions: New tamsulosin 0.4 mg Capsule 0.4 mg PO HS 10 Days Qty: 10 RF: 0 sennosides [Senokot] 8.6 mg Tablet 8.6 mg PO QAM 10 Days Qty: 10 RF: 0 phenazopyridine [Pyridium] 100 mg Tablet 100 mg PO TID PRN (Reason: bladder pain) 3 Days Qty: 6 RF: 0 acetaminophen 325 mg Tablet 325 mg PO Q6H PRN (Reason: fever or pain) 7 Days Qty: 28 RF: 0 ciprofloxacin HCl 500 mg Tablet 500 mg PO BID 7 Days Qty: 14 RF: 0 oxycodone 5 mg Tablet 5 mg PO Q6H PRN (Reason: moderate to severe pain) 4 Days Qty: 24 RF: 0 Continued levothyroxine 137 mcg tablet 137 mcg PO DAILY RF: 0 Discharge Orders: Discharge Order (Routine); Ordered 03/04/20 Ordered By: Dilip Chung Admission Data Admit Date/Time: 03/03/20 05:53 Attending Provider: Dilip Chung Admit Provider: Dilip Chung Primary Care Provider: Bjorn Billingsley Other Providers: Mikael Clay ; Pollo Zaman
[2020-03-04] MEDS ORDERED: TAMSULOSIN HCL 0.4 MG CAP PO ONE (09:00)
[2020-03-04] MEDS: OXYCODONE HCL IR 5 MG TAB (IMMEDIATE RELEASE) PO PRN (10:50)
[2020-03-04] MEDS ORDERED: TAMSULOSIN HCL 0.4 MG CAP PO SCH (21:00)
== END 2020-03-04 11:08 | disposition home or self-care (01) | DRG 661 ==
LOC: ED 03:35 → 3N 05:53